=== PATIENT | male | born 1950 | race Two or more races ===

== ENCOUNTER → 2016-04-29 | Outpatient (REF) | payer OTHER, BC | LOC: M SMT 13:08 | PROVIDERS: ATTEND Nurse Practitioner Women's Health | DX: R97.20 Elevated prostate specific antigen [PSA] (principal) ==

== ENCOUNTER → 2016-05-07 | Outpatient (CLI) | payer OTHER, BC ==
--- NOTE | 2016-05-07 12:09 | REP ---
Prostate sonography: History: Elevated PSA. Sonographic findings: Trans rectal prostate sonography demonstrates unremarkable seminal vesicles. Prostate gland is heterogeneously enlarged with calcifications and cystic changes noted. There is a is 0.8 cm nodule on the left side of the prostate. Glandular dimensions are measured at 4.8 x 3.7 x 5.3 cm with a calculated glandular volume of 48.2 ml. Transrectal sonographic guidance provided to Dr. Enamorado who performed trans rectal ultrasound guided needle biopsy procedure . Signed by Shorty Johnson MD 05/07/2016 12:01 P
== END | disposition home or self-care (01) ==
LOC: M SMT PRO 08:24
PROVIDERS: ATTEND Urology
DX: C61 Malignant neoplasm of prostate (principal)
CPT/HCPCS: 55700; 76872; 76942; G0416

== ENCOUNTER → 2016-05-28 | Outpatient (CLI) | payer BC, OTHER ==
--- NOTE | 2016-05-30 07:35 | RADONC ---
RADIATION ONCOLOGY CONSULTATION NOTE DATE: 05/28/2016 CHART NUMBER: [id number]. DIAGNOSIS: Prostate cancer. STAGE: IIA, V2yD2V6. ECOG PERFORMANCE STATUS: 0 CONSULTATION NOTE: Mr. Michelle is a very pleasant 68-year-old white male with the diagnosis of a stage IIA, [id number] moderately to poorly differentiated Lebanon score 7 (4-3) adenocarcinoma of the prostate who is presenting to us today for consideration of definitive external beam radiation therapy with IMRT/IGRT. HISTORY OF PRESENT ILLNESS: The patient was in his usual state of health but was found to have an elevated PSA, which reached a level of 7.29 on 04/16/2016. On 05/07/2016 the patient underwent prostate needle biopsy and pathology revealed a Lebanon score 7 (4-3) adenocarcinoma of the prostate involving the left lateral mid prostate as well as the left lateral apex of the prostate. The patient has done well since biopsy and is now presenting to us to discuss his therapeutic options. PAST MEDICAL HISTORY: The patient's past medical history is positive for atrial fibrillation and hypertension. He had a vasectomy in the past and right rotator cuff surgery. ALLERGIES: The patient has no known drug allergies. SOCIAL HISTORY: The patient does not smoke cigarettes. He drinks alcohol rarely. FAMILY HISTORY: The patient's family history is positive for a father with prostate cancer which was treated 25 years ago with external beam radiation therapy. His mother had thyroid cancer. REVIEW OF SYSTEMS: The patient's review of systems is noncontributory except for some hearing loss. He denies nausea, vomiting, fevers, chills, night sweats, diplopia, headaches, anxiety or depression, anorexia, weight loss, visual disturbances, chest pain, urinary or bowel difficulties, bone pain or neurological problems. PHYSICAL EXAMINATION: The patient is a well-developed, well-nourished male in no acute distress. HEENT exam is normocephalic, atraumatic. Extraocular movements are intact. There is no palpable cervical, supraclavicular, infraclavicular, axillary, or inguinal lymphadenopathy present. Lungs are clear to auscultation and percussion. Heart has a regular rate and rhythm. Abdomen is benign with no hepatosplenomegaly, masses, or tenderness. Rectal examination reveals a normal anal sphincter tone. His prostate is smooth with no evidence of nodularity. Skeletal examination reveals no tenderness to pressure or percussion of the bony skeleton. Extremities reveal no clubbing, cyanosis, or edema. Neurologic exam is grossly intact as is the remainder of the physical examination. MEDICAL NECESSITY: IMRT/IGRT is clinically indicated for the highly conformal dose planning required. The target volume is in close proximity to critical structures, such as the rectum, bladder, small bowel, and femoral heads. The volume of interest must be covered with narrow margins to adequately protect immediately adjacent structures. The plan requires interpretation of complex testing such as CT localization. As noted above, special planning (IMRT) and localizing (IGRT) is required and essential to maximally protect sensitive normal tissue structures which cannot be accomplished using conventional 3-dimensional planning. ASSESSMENT: Clearly Mr. Michelle is a candidate for external beam radiation therapy and I have so informed him. I have discussed with the patient in detail the potential benefits as well as possible acute and chronic sequelae of external beam radiation therapy. We discussed the logistics of treatment planning, simulation and subsequent fractionated daily radiation treatments. We discussed the use of IMRT and IGRT radiation. In this patient due to the high doses required to obtain local control and the proximity of many critical structures such as the bladder, rectum, and small bowel, as well as femoral heads, IMRT will be needed to keep the normal structures within their tolerance limits while delivering a curative dose of radiation to his prostate and seminal vesicles. I discussed in detail the logistics of treatment planning, simulation and subsequent fractionated daily radiation treatments. In addition, I discussed the potential benefits as well as drawbacks of surgical resection for his prostatic adenocarcinoma. We spent more than an hour discussing the benefits and drawbacks of each of his potential therapeutic modalities. I explained to the patient the NCCN guidelines with regard to his treatment options for his present stage and grade of disease. The patient has not yet decided whether or not he wishes to undergo surgery or radiation. I have instructed him to feel free and contact me at anytime once he makes his decision. We will keep his chart active in the meantime. I have also given the patient my cell phone number as well as my work number should any questions arise whatsoever, or if I could be of any further assistance to him in the meantime while he is making decision. Thank you for allowing us to participate in the care of this very pleasant gentleman. If I could be of any further assistance or provide you with any information, please feel free to contact me anytime.
== END ==
LOC: M ONCR 09:12
PROVIDERS: ATTEND Radiology Radiation Oncology
DX: C61 Malignant neoplasm of prostate (principal)

== ENCOUNTER → 2016-06-07 | Outpatient (CLI) | payer BC | LOC: M SMT 10:04 | PROVIDERS: ATTEND Urology | DX: C61 Malignant neoplasm of prostate (principal); Z80.42 Family history of malignant neoplasm of prostate ==

== ENCOUNTER 2016-07-16 06:30 | Inpatient (IN) | payer BC ==
[~2016-07-16] VITALS: Ht 175.3 cm; Wt 88.5 kg
[2016-07-16] VITALS (8 sets, daily range): BP systolic 121–155; BP diastolic 59–86
[~2016-07-16 06:30] MED LIST: ASCO25TA PO; DILT240C75 PO; HYDR25TAB PO; MAGN200T PO; OMEG12002 PO; PROP300T PO; PROSTAB PO; VITACAP8 PO; XARE10TA PO
[2016-07-16] MEDS ORDERED: LR 1,000 ML IV SCH ×2 (06:45→13:15)
[2016-07-16] MEDS ORDERED: LIDOCAINE 1% SDV 5 ML VIAL SQ ONE (07:45)
[2016-07-16] MEDS ORDERED: CO Q200C PO (07:53)
[2016-07-16] MEDS ORDERED: MULTCAP11 PO (07:53)
[2016-07-16] MEDS ORDERED: METHYLENE BLUE 0.5% (5MG/ML) 10 ML AMP (PROVAYBLUE)(Q9968 PER 1MG) As Ordered ONE (07:57)
[2016-07-16] MEDS ORDERED: SCOPOLAMINE 1.5 MG TRANSDERMAL As Ordered ONE (07:58)
[2016-07-16] MEDS ORDERED: SCOPOLAMINE 1.5 MG TRANSDERMAL TD ONE (07:59)
[2016-07-16] MEDS ORDERED: LIDOCAINE 2% INJ 100 MG/5 ML SDV (FOR ANES.) As Ordered ONE (09:08)
[2016-07-16] MEDS ORDERED: NEOSTIGMINE 1MG/ML 5 ML SYRINGE (J2710) As Ordered ONE (09:08)
[2016-07-16] MEDS ORDERED: HYDROmorphone HCL 2 MG/ML 1ML VIAL (J1170) As Ordered ONE (09:08)
[2016-07-16] MEDS ORDERED: dexameTHASONE 4 MG/ML 1ML VIAL (J1100) As Ordered ONE (09:08)
[2016-07-16] MEDS ORDERED: MIDAZOLAM INJ 2 MG/2 ML VIAL (J2250) As Ordered ONE (09:08)
[2016-07-16] MEDS ORDERED: ONDANSETRON 4MG/2ML VIAL (J2405) As Ordered ONE ×2 (09:08→13:13)
[2016-07-16] MEDS ORDERED: GLYCOPYRROLATE INJ 0.2 MG/ML 2 ML VIAL As Ordered ONE (09:08)
[2016-07-16] MEDS ORDERED: ROCURONIUM BROMIDE 50 MG/5 ML VIAL As Ordered ONE ×2 (09:08→10:43)
[2016-07-16] MEDS ORDERED: fentaNYL 250 MCG/5 ML INJECTION (J3010) As Ordered ONE (09:08)
[2016-07-16] MEDS ORDERED: PROPOFOL 200 MG/20 ML VIAL As Ordered ONE (09:08)
[2016-07-16] MEDS ORDERED: fentaNYL 100 MCG/2 ML INJECTION (J3010) As Ordered ONE (13:12)
[2016-07-16] MEDS ORDERED: PERCOCET 5MG/325MG TAB PO PRN (13:15)
[2016-07-16] MEDS: fentaNYL 100 MCG/2 ML INJECTION (J3010) IV PRN ×4 (13:15→13:30)
[2016-07-16] MEDS ORDERED: ONDANSETRON 4MG/2ML VIAL (J2405) IV PRN ×2 (13:15→13:30)
[2016-07-16] MEDS ORDERED: oxyCODONE 5MG TAB PO PRN (13:30)
[2016-07-16] MEDS ORDERED: ACETAMINOPHEN 650MG ER TAB (TYLENOL ARTHRITIS) PO SCH (13:30)
[2016-07-16 13:40] LABS: MEAN CORPUSCULAR HEMOGLOBIN 32.9 pg (27.0-33.0); MEAN CORPUSCULAR HGB CONC 34.8 g/dl (32.0-36.5); MEAN CORPUSCULAR VOLUME 94.7 fl (80.0-96.0); RED CELL DISTRIBUTION WIDTH 12.7 % (11.5-14.5); WHITE BLOOD COUNT 12.1 K/mm3 (4.0-10.0)
[2016-07-16 13:52] LABS: CALCIUM LEVEL 8.5 MG/DL (8.8-10.2); CREATININE FOR GFR 1.37 MG/DL (0.70-1.30); GLOMERULAR FILTRATION RATE 55.7 (>49); POTASSIUM SERUM 4.3 MEQ/L (3.5-5.1)
[2016-07-16] MEDS: KCL 20MEQ IN D5/0.45NS 1000ML 1,000 ML IV SCH ×2 (13:55→21:21)
[2016-07-16] MEDS ORDERED: KETOROLAC 30 MG/ML VIAL (J1885) IV PRN (14:00)
[2016-07-16] MEDS: ACETAMINOPHEN 650MG ER TAB (TYLENOL ARTHRITIS) PO SCH ×2 (16:07→21:20)
[2016-07-16] MEDS: PANTOPRAZOLE 40MG INJ (PROTONIX) (C9113) IV SCH (16:08)
[2016-07-16] MEDS: LevoFLOXacin IV 500 MG in APPROPRIATE DILUENT 1 EA IV SCH (16:09)
[2016-07-16] MEDS: PROPAFENONE 150 MG TAB PO SCH (21:20)
[2016-07-17] VITALS: BP 129/58
[2016-07-17 04:00] VITALS: BP 136/73
[2016-07-17] MEDS: ACETAMINOPHEN 650MG ER TAB (TYLENOL ARTHRITIS) PO SCH ×2 (05:41→13:58)
[2016-07-17 07:26] LABS: MEAN CORPUSCULAR HEMOGLOBIN 33.5 pg (27.0-33.0); MEAN CORPUSCULAR HGB CONC 34.5 g/dl (32.0-36.5); MEAN CORPUSCULAR VOLUME 97.1 fl (80.0-96.0); RED CELL DISTRIBUTION WIDTH 12.9 % (11.5-14.5); WHITE BLOOD COUNT 14.2 K/mm3 (4.0-10.0)
[2016-07-17 07:48] LABS: ANION GAP 8 MEQ/L (8-16); BLOOD UREA NITROGEN 17 MG/DL (7-18); CALCIUM LEVEL 8.7 MG/DL (8.8-10.2); CARBON DIOXIDE LEVEL 28 MEQ/L (21-32); CHLORIDE LEVEL 105 MEQ/L (98-107); GLOMERULAR FILTRATION RATE > 60.0 (>49); GLUCOSE, FASTING 142 MG/DL (80-110); POTASSIUM SERUM 4.1 MEQ/L (3.5-5.1); SODIUM LEVEL 141 MEQ/L (136-145)
[2016-07-17 08:00] VITALS: BP 156/77
[2016-07-17] MEDS: PROPAFENONE 150 MG TAB PO SCH (08:58)
[2016-07-17 08:59] VITALS: BP 156/77
[2016-07-17] MEDS ORDERED: hydroCHLOROthiazide 25 MG TAB PO SCH (09:00)
[2016-07-17] MEDS: KCL 20MEQ IN D5/0.45NS 1000ML 1,000 ML IV SCH (11:22)
[2016-07-17 12:00] VITALS: BP 130/81
--- NOTE | 2016-07-17 12:36 | RO ---
DATE OF SURGERY: 07/16/2016 PREOPERATIVE DIAGNOSIS: Prostate cancer. POSTOPERATIVE DIAGNOSIS: Prostate cancer. SURGERY PERFORMED: Robotic-assisted radical prostatectomy plus bilateral pelvic lymph node dissections. SURGEON: Heath Frazier MD OIL DELIVERER: GRAEME Castillo ESTIMATED BLOOD LOSS: 100 mL. ANESTHESIA: General. COMPLICATIONS: None. HISTORY OF PRESENT ILLNESS: This is a 65-year-old male patient with a history of prostate cancer, localized, he has consented for a robotic-assisted radical prostatectomy plus bilateral pelvic lymph node dissections. PROCEDURE DESCRIPTION: In a patient under general anesthesia in supine modified low lithotomy position, after prepping and draping the area of concern, which included the entire genitalia and abdomen, we started by introducing a #16-[place] Moncada catheter with 10 mL balloon to drain the bladder. An orogastric tube was also placed to drain the gastric contents. We then proceeded to do an incision infraumbilically for about 2 cm in the midline. Through this incision, we opened the aponeurosis fascia of the rectus muscle in the midline with finger dissection. We dissected the Retzius space. We then introduced a balloon space maker and dilated further on to the Retzius space. We then proceeded to place a 12 mm balloon trocar and inflated the balloon to 40 mL; and through this trocar, we insufflated the CO2 into the extraperitoneal space. We then proceeded to place a camera handheld, degrees robotic camera to assist in placing the other ports, two ports on the right side and two ports on the left side. 8 mm ports were placed on the right two by each other by 8 cm and two on the left by each other by 8 cm. On the left side, there was an server service assistant port in a midclavicular line. We then proceeded to place the patient in a steep Trendelenburg position and dock the robot. We proceeded to actually start by defatting the prostatic fat and identifying the anatomy of the prostate. We then opened the endopelvic fascia from base to apex on both sides and then proceeded to actually secure the dorsal vein complex with a dorsal vein stitch with a CT1 needle 0 Vicryl times two and also a 3-0 V-Loc times two suture ligating the dorsal vein complex. We preserved the puboprostatic ligaments. We then proceeded to open the anterior bladder neck and land in the bladder and then deflated the balloon; and with the third arm, we put into traction the prostate by pulling the Moncada catheter to traction anteriorly. We then cut the posterior bladder neck and the posterior detrusor muscle; and then in the vas deferens, we dissected both vas deferens and then cut them; and with the third arm, we pulled the vas deferens anteriorly to put into traction the posterior Denonvilliers fascia. We dissected the right seminal vesicle and left seminal vesicle, fulgurating with bipolar PK, deferential arteries. We then proceeded to incise the posterior Denonvilliers fascia and dissect the rectum away from the prostate gland from base to apex. We then proceeded to actually place Hem-o-loks on the left side and the right side, extra-large, to control the pedicles of the prostate and then mobilized the prostate gland from base to apex. We then proceeded to cut the dorsal vein complex with monopolar scissors and cut the urethra. We then placed the prostate and seminal vesicle into a 10 mm Endo Catch bag. We then proceeded to reconstruct the posterior Denonvilliers fascia with a 3-0 V-Loc in a running fashion. We then proceeded to do a ureterovesical anastomosis with a van Velthoven technique, starting at 6 o'clock outside-in in the bladder and inside-out in the urethra running it across 360 degrees and tying one knot. Before closing the bladder, we actually passed a #20-[place] Moncada catheter and inflated the balloon to 10 mL and placed it to gravity. We then proceeded to start our lymph node dissections. Our limits of dissection were the external iliac artery laterally, posteriorly the posterior lateral wall, medially the bladder, superiorly the bifurcation of the hypogastric arteries, and inferiorly the lacunar ligament. The obturator lymph nodes and hypogastric lymph nodes, as well as the iliac vein lymph nodes were extracted and placed into a 10 mm Endo Catch bag. We then proceeded to secure lymphostasis with Hem-o-loks and bipolar PK. We proceeded to do the same technique on the contralateral side. One we performed this, we placed FloSeal on the area of resection and then took out the third arm and placed a César-Ellington (CARLITO) 15-[place] round drain into the pelvis. We took out the third arm and the instruments out and then undocked the robot. We extracted the specimens after taking the trocars out. The specimens were extracted from the midline incision one by one, left pelvic lymph node dissection, right pelvic lymph node dissection, prostate, and seminal vesicle. We then closed the incision of the midline with UR6 in a 2-0 Vicryl running fashion. All incisions were closed with subcuticular stitches 4-0 Monocryl. Mastisol, Steri-Strips, Telfa, and Tegaderm were placed on each incision site. The CARLITO was placed into a bulb suction and secured to the skin with a 3-0 nylon. PLAN: The patient will pass through recovery and then to the floor. Once he is tolerating a regular diet and pain is controlled with by mouth pain medication, he will be discharged home.
[2016-07-17] MEDS: LevoFLOXacin IV 500 MG in APPROPRIATE DILUENT 1 EA IV SCH (13:58)
[2016-07-17] MEDS: PANTOPRAZOLE 40MG INJ (PROTONIX) (C9113) IV SCH (15:19)
[2016-07-17 16:00] VITALS: BP 133/69
[2016-07-17] MEDS ORDERED: TYLE650T35 PO (16:56)
[2016-07-17] MEDS ORDERED: LEVA500T PO (16:56)
[2016-07-17] MEDS ORDERED: OXYC-517 PO (16:56)
--- NOTE | 2016-07-18 05:47 | DSES ---
DATE OF ADMISSION: 07/16/2016 DATE OF DISCHARGE: 07/17/2016 ADMISSION DIAGNOSIS: Prostate cancer. DISCHARGE DIAGNOSES: Prostate cancer. SURGERY PERFORMED: Robotic assisted radical prostatectomy plus bilateral pelvic lymph node dissections. ADMISSION SURGEON: Heath Frazier MD DISCHARGE SURGEON: Heath Frazier MD HISTORY OF PRESENT ILLNESS: This is a 65-year-old male patient who has a clinical stage This is a 64-year-old male patient with a history of prostate cancer. The patient has a clinical stage cT1c NX MX prostate cancer, Homero VII, 4+3, and 2 positive biopsies out of 12. The patient has consented for robotic assisted radical prostatectomy plus bilateral pelvic lymph node resection. He was admitted for this procedure on 07/16/2016. After this he was admitted to the hospital. HOSPITALIZATION COURSE: The patient did very well. By postoperative day #1, he was tolerating a regular diet and ambulating very well. The pain was tolerated with by mouth pain medication. He was passing gas and the Moncada catheter was draining to gravity clear urine. The César-Ellington (J-P) output was very minimal and had only put out 60 mL and 20 mL per shift. His urine output was 1200 and 5125. The patient would like to go home and for this reason we have discontinued the J-P drain and will send him home with a Moncada catheter to gravity and the following indications. No heavy weight lifting above 20 pounds, no driving under narcotics and no driving for ten days. He may shower, no sitz bath, no heavy weight lifting above 20 pounds. He has to take Levaquin 500 mg one tablet by mouth per day for 10 days, Tylenol 650 mg extended release every eight hours as needed for pain and oxycodone 5 mg every six hours as needed for severe pain. The patient has agreed to this and will followup in 10 days for a voiding trial.
== END 2016-07-17 18:50 | disposition home or self-care (01) | DRG 480 ==
LOC: M OR 06:30 → M PED 14:09
PROVIDERS: ADMIT Urology; ATTEND Urology
PROC: 07TC4ZZ Resection of Pelvis Lymphatic, Percutaneous Endoscopic Approach (ICD-10-PCS; 2016-07-16)
PROC: 8E0W4CZ Robotic Assisted Procedure of Trunk Region, Percutaneous Endoscopic Approach (ICD-10-PCS; 2016-07-16)
PROC: 0VT04ZZ Resection of Prostate, Percutaneous Endoscopic Approach (ICD-10-PCS; principal; 2016-07-16 08:10)
DX: C61 Malignant neoplasm of prostate (principal); I12.9 Hypertensive chronic kidney disease with stage 1 through stage 4 chronic kidney disease, or unspecified chronic kidney disease; N18.2 Chronic kidney disease, stage 2 (mild)

== ENCOUNTER → 2016-07-29 | Outpatient (CLI) | payer BC ==
[~2016-07-29] MED LIST changes: +CO Q200C PO; +LEVA500T PO; +MULTCAP11 PO; +OXYC-517 PO; +TYLE650T35 PO
--- NOTE | 2016-07-30 04:53 | REP ---
Clinical: Testicular pain and swelling. Technique: Dougherty scale and color Doppler evaluation using linear and curved array transducer with color Doppler evaluation. Findings: Scrotal wall thickening is appreciated and nonspecific. Within the left zara scrotum and seemingly separate from the testicle and epididymis is an echogenic, heterogeneous, vascular structure which cannot definitively be further characterized by current examination. Differential diagnosis includes inguinal hernia, possibly inflamed spermatic cord or less likely mass lesion. Consider contrast enhanced CT of the pelvis with extension through the scrotum if necessary. The testicles and epididymi are relatively normal in contour, size, echogenicity, vascularity and overall appearance/contour. Incidental note is made of small epididymal head cysts measuring 4.5 mm on the right and 6 mm on the left. There is no evidence for intratesticular mass lesion, infectious/inflammatory process, or torsion. No obvious hydroceles or varicoceles are identified. Right testicle measures 4.9 x 2.4 x 3.2 cm. Left testicle measures 4.6 x 2.3 x 3.5 cm. Impression: 1. Complex heterogeneous echogenic structure extending into the left zara scrotum which appears avascular and cannot be further characterized by current examination. Differential diagnosis would include but is not limited to inguinal hernia, inflamed spermatic cord, and less likely mass. Consider contrast enhanced CT of the pelvis with extension through the scrotum if necessary. 2. Normal appearance of the bilateral testicles and relatively normal appearance the bilateral epididymi without hydrocele or varicocele. Signed by Jaime Garner MD 07/30/2016 04:45 A
== END ==
LOC: M SMT 11:50
PROVIDERS: ATTEND Specialist
DX: N50.89 Other specified disorders of the male genital organs (principal)

== ENCOUNTER → 2016-08-30 | Outpatient (CLI) | payer BC ==
[~2016-08-30] MED LIST changes: -CO Q200C PO; +CO Q200C10 PO; +ISOVUE-370 76% 100ML VIAL (Q9967) As Ordered ONE; +LEVA1TAB2 PO; -LEVA500T PO
--- NOTE | 2016-08-30 19:04 | REP ---
Clinical: Possible mass by scrotal ultrasound. Technique: Axial contrast enhanced images of the pelvis using 100 ml Isovue 370 intravenous contrast material with coronal and sagittal re-formations. Findings: The the patient is noted to be status post prostatectomy. There is a curvilinear fluid collection along the left anteroinferior pelvic sidewall which measures 2.6 cm in diameter and approximately 8 cm in length reaching the level of the inguinal canal. This may represent a lymphocele or seroma possibly related to patient's prostatectomy and may intermittently herniate into the left inguinal canal thus correlating with the abnormal mass-like structure on prior ultrasound. Small fat containing inguinal hernias are noted (right greater than left). Small likely nonspecific inguinal lymph nodes are also identified. The bladder is unremarkable. No obvious prostate or peroneal mass is appreciated. No free pelvic fluid or ascites. Visualized portions of the small and large bowel demonstrate colonic and sigmoid diverticula without acute diverticulitis and normal terminal ileum/appendix in the right lower quadrant. Vascular structures are symmetric and normal. Osseous structures without focal osseous abnormality. Impression: Abnormal mass-like structure in the left inguinal canal on prior ultrasound likely corresponds to the above-mentioned contained fluid collection along the left pelvic sidewall which may intermittently herniate into the left inguinal canal. Small fat containing inguinal hernias noted (right greater than left). No other significant abnormalities are appreciated. Signed by Jaime Garner MD 08/30/2016 06:56 P
== END ==
LOC: M RAD 17:41
PROVIDERS: ATTEND Nurse Practitioner Women's Health
DX: N50.89 Other specified disorders of the male genital organs (principal); K40.90 Unilateral inguinal hernia, without obstruction or gangrene, not specified as recurrent
CPT/HCPCS: 72193; Q9967

== ENCOUNTER → 2017-11-07 | Outpatient (CLI) | payer BC, OTHER | LOC: M LRY 11:21 | DX: R50.9 Fever, unspecified (principal); R05 Cough | CPT/HCPCS: 71046 ==

== ENCOUNTER 2018-10-29 10:21 | Observation (INO) | payer MEDICARE, OTHER ==
[~2018-10-29] VITALS: Ht 175.3 cm; Wt 85.1 kg
[~2018-10-29 10:21] MED LIST changes: -ASCO25TA PO; -DILT240C75 PO; +DILT240C82 PO; -ISOVUE-370 76% 100ML VIAL (Q9967) As Ordered ONE; +VITA1TAB23 PO
[2018-10-29 11:08] LABS: BASO % 0.6 % (0.0-1.0); EOS # 0.1 10^3/uL (0.0-0.5); EOS % 2.7 % (0.0-3.0); HEMOGLOBIN 14.9 g/dl (13.5-17.5); LYMPH # 1.1 10^3/uL (1.5-5.0); LYMPH % 20.5 % (24.0-44.0); MEAN CORPUSCULAR HEMOGLOBIN 33.2 pg (27.0-33.0); MEAN CORPUSCULAR HGB CONC 35.5 g/dl (32.0-36.5); MEAN CORPUSCULAR VOLUME 93.5 fl (80.0-96.0); MONO # 0.5 10^3/uL (0.0-0.8); MONO % 8.7 % (0.0-5.0); NEUTROPHILS # 3.5 10^3/uL (1.5-8.5); NEUTROPHILS % 66.5 % (36.0-66.0); PLATELET COUNT, AUTOMATED 183 10^3/uL (150-450); RED BLOOD COUNT 4.49 10^6/uL (4.30-6.10); WHITE BLOOD COUNT 5.3 10^3/uL (4.0-10.0)
--- NOTE | 2018-10-29 11:28 | REP ---
Clinical: Transient ischemic attack. Comparison: None . Findings: Age-related atrophy and microvascular ischemic changes are appreciated including very subtle low density areas within the bilateral basal ganglia which are of uncertain chronicity. The ventricles and sulci are symmetric. Dougherty-white differentiation is maintained. There is no evidence for acute intracranial hemorrhage, mass/mass effect, pathology or infarction. No extra-axial fluid collection. Calvarium is intact. Paranasal sinuses and mastoid air cells are clear. Impression: 1. Age related atrophy and microvascular ischemic changes. 2. No acute intracranial hemorrhage, obvious infarction, or mass/mass effect. 3. Very subtle low density areas within the bilateral basal ganglia (right greater than left) may represent chronic change and less likely area of infarction. Electronically Signed by Jaime Garner MD 10/29/2018 11:20 A
[2018-10-29 11:38] LABS: ALT/SGPT 38 U/L (12-78); BILIRUBIN,DIRECT 0.2 MG/DL (0.0-0.2); BILIRUBIN,TOTAL 0.8 MG/DL (0.2-1.0); BLOOD UREA NITROGEN 15 MG/DL (7-18); CALCIUM LEVEL 9.2 MG/DL (8.8-10.2); CARBON DIOXIDE LEVEL 30 MEQ/L (21-32); CHLORIDE LEVEL 106 MEQ/L (98-107); CK-MB VALUE MASS 1.4 NG/ML (<3.6); CPK CREATINE PHOSPHOKINASE 49 U/L (39-308); CREATININE FOR GFR 0.96 MG/DL (0.70-1.30); GLOMERULAR FILTRATION RATE > 60.0 (>49); GLUCOSE, FASTING 120 MG/DL (70-100); MB/CK RELATIVE INDEX 2.86 (< OR =4); POTASSIUM SERUM 3.8 MEQ/L (3.5-5.1); SODIUM LEVEL 143 MEQ/L (136-145); TOTAL PROTEIN 6.7 GM/DL (6.4-8.2); TROPONIN I < 0.02 NG/ML (< 0.10)
[2018-10-29] MEDS ORDERED: ASPI81TA85 PO (11:57)
[2018-10-29] MEDS ORDERED: PANT40TA3 PO (11:57)
[2018-10-29] MEDS ORDERED: XARE20TA PO (11:57)
[2018-10-29] MEDS ORDERED: CHOL100029 PO (11:57)
[2018-10-29] MEDS ORDERED: VITMTA PO (13:44)
--- NOTE | 2018-10-29 13:49 | REP ---
MR angiography the brain without contrast: History: Trans and global amnesia. Versus CVA. Technique: 3-D [id number] MR angiography of the brain is acquired in the usual fashion and maximal intensity projection images were generated in rotational format about the vertical and horizontal axes. In addition, source axial T1-weighted images are viewed in cine mode. MR angiographic findings: The distal vertebral arteries are patent and co-dominant. Basilar artery is a little tortuous but widely patent. The posterior cerebral and superior cerebellar vessels are normal and symmetric. The distal internal carotid arteries are unremarkable. Anterior and middle cerebral arteries appear intact. There is no visible shen aneurysm or arteriovenous malformation. Impression: Unremarkable MR angiography the brain. Electronically Signed by Shorty Johnson MD 10/29/2018 01:41 P
--- NOTE | 2018-10-29 13:51 | REP ---
MRI brain without contrast: History: Trans and global amnesia versus CA. . Comparison study: Comparison CT study is from earlier this date. Technique: Axial and sagittal imaging planes are utilized for T1 and T2-weighted scans. Sequences include spin-echo, fast spin echo, FLAIR, and diffusion weighted sequences. MRI findings: No bony calvarial lesion is seen. Craniocervical junction and upper cervical cord are normal in appearance. There is no MR evidence of significant paranasal sinus disease. No intraorbital abnormality is seen. The lateral, third, and fourth ventricles are normal in size and position. Dougherty-white differentiation pattern is intact above and below the tentorium. There is no evidence of intracranial hemorrhage. No mass, infarction, extra-axial fluid collection or midline shift is seen. No abnormal white matter lesion is seen. Impression: Negative noncontrast brain MRI study. Electronically Signed by Shorty Johnson MD 10/29/2018 01:42 P
[2018-10-29] MEDS ORDERED: ACETAMINOPHEN TAB 650MG DOSE (2X325MG) PO PRN (17:15)
[2018-10-29 17:30] VITALS: BP 193/92
[2018-10-29 17:31] VITALS: BP 185/82
--- NOTE | 2018-10-29 18:41 | HPEPDOC ---
General Date of Admission Oct 29, 2018 at 15:48 Date of Service: Oct 29, 2018 Chief Complaint The patient is a 68-year-old male admitted with a reason for visit of Transient Global Amnesia. Source: Patient, Family Exam Limitations: Hard of hearing Timing/Duration: This morning Severity: Mild Associated Symptoms: Other (lightheadedness) History of Present Illness This is a 68-year-old male who was noted by his to be confused this morning. He had no recollection of whether he taken medications or not. He describes himself as "having a senior moment." He kept repeating questions. He was unable to recall what he was supposed to do that day. He did notice something was wrong and requested to come to the hospital, which is unusual for him per his . Of interest, she knows that he had similar symptoms when he had a concussion years ago. He has not had any fall or head injury. Home Medications Scheduled Aspirin (Aspir 81) 81 Mg Tablet.dr, 81 MG PO QHS, (Reported) Magnesium (Magnesium) 200 Mg Tab, 400 MG PO DAILY, (Reported) Multivitamins (Thera M Plus Tablet) 1 Each Tablet, 1 TAB PO DAILY, (Reported) [place]uc[place]-3 Fatty Acids/Fish Oil ([place]ucumber 3 Fish Oil Softgel) 1 Cap Cap, 1 CAP PO DAILY, (Reported) Pantoprazole Sodium (Pantoprazole Sodium) 40 Mg Tablet.dr, 40 MG PO DAILY, (Reported) Propafenone HCl (Propafenone HCl) 300 Mg Tab, 300 MG PO DAILY, (Reported) RX WRITTEN FOR BID, PT ONLY TAKES DAILY Rivaroxaban (Xarelto) 20 Mg Tablet, 20 MG PO Q2D, (Reported) Ubidecarenone (Co Q-10) 200 Mg Cap, 200 MG PO DAILY, (Reported) Vitamin D (Vitamin D3) 1,000 Unit Tablet, 2,000 UNITS PO DAILY, (Reported) Allergies Coded Allergies: No Known Allergies (Unverified , 10/29/18) Past Medical History Medical History Past medical history is remarkable for hypertension, atrial fibrillation for which he is on chronic anticoagulation, prostate cancer for which he's undergone treatment, hearing loss Surgical History Surgical history includes rotator cuff repair, the aforementioned prostate cancer, repair of fourth digit amputation Family History Significant Family History: Heart disease There are family members with congestive heart failure and skin cancers. There are also family members with renal disease and a sister with Graves' disease. 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 He does not have an advanced directive but has designated his as his power of deputy attorney general. A-FIB/CHADSVASC A-FIB History Current/History of A-Fib/PAF?: Yes Current PO Anticoag Therapy: Yes Review of Systems Other systems 10 system review is otherwise negative except as stated in the brief presentation Physical Examination General Exam: Positive: Alert Eye Exam: Positive: PERRLA, Conjunctiva & lids normal ENT Exam: Positive: Atraumatic, Mucous membr. moist/pink, Tongue Midline, Nares Patent Neck Exam: Positive: Supple Chest Exam: Positive: Clear to auscultation Heart Exam: Positive: Rate Normal Telemetry: Positive: No significant arrhythmia Abdomen Exam: Positive: Normal bowel sounds, Soft; Negative: Tenderness, Hepatospenomegaly Extremity Exam: Positive: Normal pulses, Other (the patient does have deformity to the tip of his right fourth digit) Skin Exam: Positive: Nl turgor and temperature Neuro Exam: Positive: Normal Speech, Strength at 5/5 X4 ext, Normal Tone, Cranial Nerves 3-12 NL, Other (the patient scores 30 points on a Mini-Mental Status exam at this time.) Psych Exam: Positive: Mental status NL, Mood NL, Oriented x 3 Vital Signs Vital Signs Date Time Temp Pulse Resp B/P (MAP) Pulse Ox O2 Delivery O2 Flow Rate FiO2 10/29/18 17:31 185/82 (116) 10/29/18 17:30 98.9 73 18 98 10/29/18 17:15 Room Air Laboratory Data Labs 24H Laboratory Tests 2 10/29/18 10:50: Immature Granulocyte % (Auto) 1.0, White Blood Count 5.3, Red Blood Count 4.49, Hemoglobin 14.9, Hematocrit 42.0, Mean Corpuscular Volume 93.5, Mean Corpuscular Hemoglobin 33.2H, Mean Corpuscular Hemoglobin Concent 35.5, Red Cell Distribution Width 12.6, Platelet Count 183, Neutrophils (%) (Auto) 66.5H, Lymphocytes (%) (Auto) 20.5L, Monocytes (%) (Auto) 8.7H, Eosinophils (%) (Auto) 2.7, Basophils (%) (Auto) 0.6, Neutrophils # (Auto) 3.5, Lymphocytes # (Auto) 1.1L, Monocytes # (Auto) 0.5, Eosinophils # (Auto) 0.1, Basophils # (Auto) 0.0, Nucleated Red Blood Cells % (auto) 0.0, Anion Gap 7L, Glomerular Filtration Rate > 60.0, Calcium Level 9.2, Aspartate Amino Transf (AST/SGOT) 18, Alanine Aminotransferase (ALT/SGPT) 38, Alkaline Phosphatase 66, Total Bilirubin 0.8, Direct Bilirubin 0.2, Total Creatine Kinase 49, Creatine Kinase MB 1.4, Creatine Kinase MB Relative Index 2.86, Troponin I < 0.02, Total Protein 6.7, Albumin 4.0, Albumin/Globulin Ratio 1.48, Thyroid Stimulating Hormone (TSH) 1.590 10/29/18 11:06: Bedside Glucose (Misc Panel) 115 CBC/BMP Laboratory Tests 10/29/18 10:50 Red Blood Count 4.49, Mean Corpuscular Volume 93.5, Mean Corpuscular Hemoglobin 33.2 H, Mean Corpuscular Hemoglobin Concent 35.5, Red Cell Distribution Width 12.6, Neutrophils (%) (Auto) 66.5 H, Lymphocytes (%) (Auto) 20.5 L, Monocytes (%) (Auto) 8.7 H, Eosinophils (%) (Auto) 2.7, Basophils (%) (Auto) 0.6, Neutrophils # (Auto) 3.5, Lymphocytes # (Auto) 1.1 L, Monocytes # (Auto) 0.5, Eosinophils # (Auto) 0.1, Basophils # (Auto) 0.0 Assessment/Plan 1. Short-term memory loss. Patient and are concerned that this is due to a stroke. We have explained to them the phenomenon of Transient global amnesia. It could be associated with a transient ischemic attack. MRI is negative for any findings of infarct, bleed or other abnormality. Plans are to monitor the patient overnight on telemetry. Case has been discussed with the neurology service who will see him tomorrow. 2. Chronic atrial fibrillation. The patient's primary rate control medication is propafenone. He is supposed to be on chronic anticoagulation with Xarelto but he takes it on a modified schedule that. We will correct it while he is in the hospital. 3. Hypertension. Patient states that his blood pressures are generally controlled with systolics of 136. He is currently showing a range of systolic blood pressures from 178 up to 209. His tells us he took himself off of his Cardizem about 2 months ago as he did not feel he needed it. We will replace this dosage at 240 mg daily and monitor his response. The patient is observation status. We anticipate he will require less than 2 midnights in the hospital. Plan / VTE VTE Prophylaxis Ordered?: Yes (the patient is on Xarelto) Plan Diet: Continue Current Activity: Continue Current Anticipated Discharge: Home JRAON ZHOU MD Oct 29, 2018 18:41
[2018-10-29 20:00] VITALS: BP 170/90
[2018-10-29] MEDS: ASPIRIN 81 MG ENTERIC TAB PO SCH (21:33)
[2018-10-29 23:59] VITALS: BP 175/91
[2018-10-30] VITALS (7 sets, daily range): BP systolic 126–170; BP diastolic 64–88
[2018-10-30 05:53] LABS: HEMATOCRIT 40.3 % (42.0-52.0); MEAN CORPUSCULAR HGB CONC 34.7 g/dl (32.0-36.5); MEAN CORPUSCULAR VOLUME 92.2 fl (80.0-96.0); PLATELET COUNT, AUTOMATED 192 10^3/uL (150-450); RED BLOOD COUNT 4.37 10^6/uL (4.30-6.10); WHITE BLOOD COUNT 6.3 10^3/uL (4.0-10.0)
[2018-10-30 06:11] LABS: BLOOD UREA NITROGEN 19 MG/DL (7-18); CALCIUM LEVEL 9.1 MG/DL (8.8-10.2); CARBON DIOXIDE LEVEL 31 MEQ/L (21-32); CHLORIDE LEVEL 107 MEQ/L (98-107); CREATININE FOR GFR 1.01 MG/DL (0.70-1.30); GLOMERULAR FILTRATION RATE > 60.0 (>49); GLUCOSE, FASTING 108 MG/DL (70-100); SODIUM LEVEL 143 MEQ/L (136-145)
--- NOTE | 2018-10-30 06:59 | ECGEPIP ---
[facility] - ED Test Date: 2018-10-29 Pat Name: MARVIN ORANTES Department: Room: [place] [address] Gender: Male Handy Man: maria m : 1950 Requested By: Abdias Poe Order Number: [id number] Reading MD: Abdias Rodriguez Measurements Intervals [place] Rate: 72 P: 33 AR: 190 QRS: -16 QRSD: 106 T: 17 QT: 386 QTc: 425 Interpretive Statements SINUS RHYTHM NSTTW ABNORMALITIES NO PRIORS FOR COMPARISON Electronically Signed on 10-30-2018 6:59:52 EDT by Abdias Rodriguez
[2018-10-30] MEDS: PANTOPRAZOLE 40MG TAB (PROTONIX) PO SCH (08:58)
[2018-10-30] MEDS: PROPAFENONE 150 MG TAB PO SCH (08:58)
[2018-10-30] MEDS: VITAMIN D 1,000 INTERNATIONAL UNITS TABLET PO SCH (08:59)
[2018-10-30] MEDS: RIVAROXABAN 20 MG TAB (XARELTO) PO SCH (09:06)
[2018-10-30] MEDS: ASPIRIN 81 MG ENTERIC TAB PO SCH (20:58)
[2018-10-31 04:00] VITALS: BP 134/69
[2018-10-31] MEDS: RIVAROXABAN 20 MG TAB (XARELTO) PO SCH (07:52)
[2018-10-31 08:00] VITALS: BP 131/73
--- NOTE | 2018-10-31 08:20 | ECHO ---
DATE OF PROCEDURE: 10/30/2018 AGE: 68 REFERRING PROVIDER: Dr. Chavira LOCATION: Room 8225 REASON FOR STUDY: Transient ischemic attack. 2-D MEASUREMENTS: LVS: 1.2 cm LV 6.2 cm LVPW: 1.1 cm LA: 5.0 cm Aorta: 3.6 cm RV: 3.6 cm DOPPLER MEASUREMENTS: Peak velocity across the aortic valve: 1.3 m/s Peak velocity across the LVOT: 1.2 m/s Mitral E: 1.4, Mitral A: 0.94 with a ratio of 1.5 Maximum tricuspid valve velocity: 2.8 m/s 2D COMMENTS: 1. Normal left ventricular size, wall thickness. Left ventricular systolic function is normal, estimated at 65 to 70%. 2. Mildly to moderately enlarged left atrium. Normal right atrium and right ventricle. 3. The atrial septum appeared to be normal without evidence of defect or shunt. 4. Normal aortic root. 5. No pericardial effusion seen. 6. Normal aortic valve. There was collapse of the posterior mitral valve leaflet. Normal tricuspid valve. The pulmonic valve and proximal pulmonary artery branches are normal. 7. The inferior vena cava is borderline enlarged. Central venous pressure might be elevated. DOPPLER: It detects severe eccentric mildly elevated mild aortic regurgitation, mild tricuspid regurgitation. The calculated pulmonary artery systolic pressure is about normal at 30 mmHg. Trace pulmonic regurgitation also detectded. IMPRESSION: 1. Normal global left ventricular systolic and diastolic function. 2. Severe eccentric mildly elevated mitral regurgitation with collapse of the posterior mitral valve leaflet. 3. Mild tricuspid regurgitation with normal pulmonary artery systolic pressure. 4. There are also features of elevated central venous pressure. The inferior vena cava was mildly enlarged. This patient will benefit from further cardiac workup for mitral valve repair/replacement. MTDD
[2018-10-31] MEDS ORDERED: CARD120C3 PO (08:47)
[2018-10-31] MEDS: PROPAFENONE 150 MG TAB PO SCH (09:08)
[2018-10-31] MEDS: VITAMIN D 1,000 INTERNATIONAL UNITS TABLET PO SCH (09:08)
[2018-10-31 09:09] VITALS: BP 131/73
[2018-10-31] MEDS: PANTOPRAZOLE 40MG TAB (PROTONIX) PO SCH (09:09)
--- NOTE | 2018-10-31 12:47 | CR ---
DATE OF CONSULTATION: 10/30/2018 REFERRING PHYSICIAN: Dr. Chavira REASON FOR CONSULTATION: Acute memory loss. HISTORY OF PRESENT ILLNESS: Guru Michelle is a 68-year-old man who was brought to [facility] by his due to sudden altered mental status. The patient woke up fine and had loaded furniture into his truck to deliver it to his family's home. He woke up fine and by mid morning had no recollection if he had taken his morning medications. He describes to his that he was having a "senior moment." He kept repeating questions. He was unable to recall what he was supposed to do that day. He noted that something was wrong. He requested to come to hospital, which was unusual per his . His symptoms lasted for 5 hours and they improved. He felt back to his baseline. He denies any headache or back issues at that moment. He does have history of chronic back pain. He has intermittent neck pain. He denies any numbness, weakness of his arms and leg, dysphagia, dysarthria, diplopia, urinary incontinence. He remembers that he was asking his repeatedly as to what he was going to do today. He states that 5 years ago he had an episode at work that he could not remember password and other things for a couple of hours, it resolved on its own. He states that he has lost weight and his blood pressure was running low, so he stopped taking his diltiazem. He has been taking his Xarelto every other day as his atrial fibrillation went back to sinus rhythm. He states that his location and measurement technician, Dr. Restrepo, was fine with him making these medication changes. PAST MEDICAL HISTORY: Paroxysmal atrial fibrillation, hypertension, history of prostate cancer, hearing loss. CURRENT MEDICATIONS: - aspirin 81 mg by mouth daily - magnesium 400 mg by mouth daily - multivitamin 1 tablet by mouth daily - fish oil one capsule by mouth daily - Protonix 40 mg by mouth daily - propafenone 300 mg by mouth daily - Xarelto 20 mg by mouth every other days - coenzyme Q10 200 mg by mouth daily - vitamin D3 2000 units by mouth daily He stopped taking diltiazem. ALLERGIES: None. SOCIAL HISTORY: Smokes cigars occasionally. He denies any alcohol or illicit drugs. FAMILY HISTORY: Significant for congestive heart failure and skin cancer. Sister with history of Grave's disease. REVIEW OF SYSTEMS: All systems were reviewed and found to be noncontributory except as mentioned is present illness. PHYSICAL EXAMINATION: Temperature 97.6, pulse 88, aspirin 18, blood pressure 170/80, 97% saturation on room air. Heart: Regular rate and rhythm. Lungs: Clear to auscultation. Abdomen: Soft, nontender, nondistended. Extremities: No pedal edema. No musculoskeletal abnormalities. No rash. No signs of meningeal irritation. The patient is awake, alert, oriented to place, person and time. Normal speech, comprehension and repetition. Extraocular muscles are intact. No facial weakness. Tongue and uvula are midline. 5/5 strength in all upper extremities. Deep tendon flexes 2+ throughout. Normal sensation. Gait is normal. DIAGNOSTIC STUDIES: MRI and MRA of the brain were within normal limits. His CBC and metabolic profile were normal. ASSESSMENT: 1. Suspected transient global amnesia. 2. History of paroxysmal atrial fibrillation but the patient takes his Xarelto every other day and stopped taking his diltiazem. PLAN: 1. EEG and ultrasound of carotids on outpatient basis to complete his workup. 2. He should discuss with his location and measurement technician his decision to stop diltiazem and his decision to change Xarelto to every other day. 3. The patient can be discharged home and follow with our office in 2 - 3 weeks after hospital discharge. CHRIS
--- NOTE | 2018-10-31 16:01 | IPNPDOC ---
Text Note Date of Service The patient was seen on 10/30/18. NOTE Mr. Michelle is feeling well this morning. He does not have headache or any other complaint. He is not note any memory lapses. Patient was admitted with concern for TIA after transient global amnesia event. Physical exam: HENT: neck is supple with no adenopathy or thyromegaly. He does not have scleral injection. Patient wears glasses. Cardiovascular: Regular rate and rhythm with a normal S1 and S2 and no appreciable murmur or bruit. Lungs: Clear to auscultation, good air movement. Abdomen: Soft, nontender, nondistended. Extremities: No peripheral edema or lesions. Neuro: No focal neuromotor or sensory deficits. Assessment/plan: 1. Transient global amnesia. Etiologies could include transient ischemic attack/TIA versus seizure. Echocardiogram is pending. Patient is to be seen by Neurology service. Of interest, patient describes a similar event happening at his workplace about 5 years ago. He states he did not seek care at that time. In consideration that this could be a form of seizure EEG might be reasonable, will defer to neurology service. 2. Hypertension. Patient did present with poorly controlled hypertension. He had taken himself off of his diltiazem about 2 months ago. It has been restored and his blood pressure control is improved. 3. Chronic atrial fibrillation. The patient remains on good rate control with propafenone. He is on anticoagulation with Xarelto although he only takes a dose every 2 days. This is not an approved schedule. VS,Fishbone, I+O VS, Fishbone, I+O Vital Signs Date Time Temp Pulse Resp B/P (MAP) Pulse Ox O2 Delivery O2 Flow Rate FiO2 10/31/18 09:09 59 131/73 10/31/18 08:00 97.8 16 95 10/29/18 17:15 Room Air I&O- Last 24 Hours up to 6 AM 10/31/18 06:00 Intake Total 2040 ml Output Total 1300 ml Balance 740 ml JARON ZHOU MD Oct 31, 2018 16:01
--- NOTE | 2018-10-31 17:50 | DS.PDOC ---
Discharge Summary General Date of Admission Oct 29, 2018 at 15:48 Date of Discharge October 31, 2018 Primary Care Physician: Chantal Klein Specialist/Consultants Involve: VIANEY GUZMAN MD Discharge Summary PROCEDURES PERFORMED DURING STAY: Echocardiogram. ADMITTING DIAGNOSES: 1. Transient global amnesia, uncontrolled hypertension. DISCHARGE DIAGNOSES: 1. Transient global amnesia, uncontrolled hypertension, chronic atrial fibrillation for which he is on chronic anticoagulation. COMPLICATIONS/CHIEF COMPLAINT: Transient Global Amnesia. HISTORY OF PRESENT ILLNESS/HOSPITAL COURSE: This is a 68-year-old male who's noticed by his to be confused on the morning of admission. He had significant memory deficits. He kept repeating questions. He was subsequently brought to the emergency room for evaluation. Of interest, the reports the patient having a similar episode associated with a concussion many years ago. The patient mentions having had an abrupt episode at work within the past 5 years. The patient was admitted to the telemetry floor. He was felt this had an episode of transient global amnesia. He was ruled out for acute stroke by head CT and that there was no acute lesion. He did not have any other neurologic symptoms and his amnesia, resolved. The patient in fact scored 30 out of 30 on a Mini- Mental status exam. The patient was seen by the Neurology service who will see him again on an outpatient basis; performance of an EEG may be considered as these episodes could represent seizure. The patient had remarkable. Uncontrolled hypertension on presentation. The patient told us his systolic pressures are generally in the 130s. However, he remains from the high 170s up to 209 systolically. The patient mentioned that he had one time had been on diltiazem; his tells us he took himself off of it about 2 months ago. He states he took himself off because his blood pressures w ere "fine". He was restored to his diltiazem and his blood pressures improved significantly. It is also a component of his rate control for his underlying atrial fibrillation for which he is on chronic anticoagulation with Xarelto. Patient also manages his anticoagulation differently; he only takes the Xarelto every 2 days, which is not a standard regimen. We have strongly counseled the patient that he needs to take his medications as prescribed. If he wishes to make any changes he needs to consult with his physician. We are very concerned that he will not be compliant.. DISCHARGE MEDICATIONS: Please see below. ALLERGIES: Please see below. PHYSICAL EXAMINATION ON DISCHARGE: VITAL SIGNS: Please see below. HENT: neck is supple with no adenopathy or thyromegaly. He does not have scleral injection. Patient wears glasses. Cardiovascular: Regular rate and rhythm with a normal S1 and S2 and no appreciable murmur or bruit. Lungs: Clear to auscultation, good air movement. Abdomen: Soft, nontender, nondistended. Extremities: No peripheral edema or lesions. Neuro: No focal neuromotor or sensory deficits. Psych: Patient does not exhibit memory deficits. He does appear to have some judgment and insight deficits. LABORATORY DATA: Please see below. IMAGING: ECHOCARDIOGRAM Echocardiogram showed normal global left ventricular systolic and diastolic function with an ejection fraction of 65-70%. Note was made of eccentric mitral regurgitation with collapse of the posterior mitral valve leaflet. The patient may need mitral valve repair/replacement. PROGNOSIS: ACTIVITY: As tolerated. DIET: DASH diet DISCHARGE PLAN: The patient is cleared for discharge to home. He is to follow-up with his primary care provider Chantal Klein in 1-2 weeks in order to review his medication management and for referral to cardiology. He is to also follow-up with the neurology service in 2-3 weeks. It is unfortunately not clear that this patient will be compliant as he has made medication changes without discussing them with anyone. It has been explained to the patient that he is putting himself at risk when he makes changes without consulting anyone. DISPOSITION: 01 Home, Self-Care. DISCHARGE INSTRUCTIONS: ITEMS TO FOLLOWUP ON ON OUTPATIENT: DISCHARGE CONDITION: Stable. TIME SPENT ON DISCHARGE: Greater than 35 minutes. Vital Signs/I&Os Vital Signs Date Time Temp Pulse Resp B/P (MAP) Pulse Ox O2 Delivery O2 Flow Rate FiO2 10/31/18 09:09 59 131/73 10/31/18 08:00 97.8 16 95 10/29/18 17:15 Room Air I&O- Last 24 Hours up to 6 AM 10/31/18 05:59 Intake Total 2040 ml Output Total 1300 ml Balance 740 ml Discharge Medications Scheduled Aspirin (Aspir 81) 81 Mg Tablet.dr, 81 MG PO QHS, (Reported) Diltiazem Hcl (Cardizem Cd) 120 Mg Cap.er.24h, 240 MG PO DAILY Magnesium (Magnesium) 200 Mg Tab, 400 MG PO DAILY, (Reported) Multivitamins (Thera M Plus Tablet) 1 Each Tablet, 1 TAB PO DAILY, (Reported) [place]-3 Fatty Acids/Fish Oil ([place] 3 Fish Oil Softgel) 1 Cap Cap, 1 CAP PO DAILY, (Reported) Pantoprazole Sodium (Pantoprazole Sodium) 40 Mg Tablet.dr, 40 MG PO DAILY, (Reported) Propafenone HCl (Propafenone HCl) 300 Mg Tab, 300 MG PO DAILY, (Reported) RX WRITTEN FOR BID, PT ONLY TAKES DAILY Rivaroxaban (Xarelto) 20 Mg Tablet, 20 MG PO Q2D, (Reported) Ubidecarenone (Co Q-10) 200 Mg Cap, 200 MG PO DAILY, (Reported) Vitamin D (Vitamin D3) 1,000 Unit Tablet, 2,000 UNITS PO DAILY, (Reported) Allergies Coded Allergies: No Known Allergies (Unverified , 10/29/18) JARON ZHOU MD Oct 31, 2018 17:50
== END 2018-10-31 10:20 | disposition home or self-care (01) ==
LOC: M ED 10:21 → M ED INP 15:48 → M PCU 16:28
PROVIDERS: ADMIT Internal Medicine; ATTEND Internal Medicine
DX: G45.4 Transient global amnesia (principal); I10 Essential (primary) hypertension; I48.2 Chronic atrial fibrillation; I34.0 Nonrheumatic mitral (valve) insufficiency; R42 Dizziness and giddiness; H91.90 Unspecified hearing loss, unspecified ear; Z79.899 Other long term (current) drug therapy; Z79.01 Long term (current) use of anticoagulants; Z79.82 Long term (current) use of aspirin; Z91.14 Patient's other noncompliance with medication regimen; Z85.46 Personal history of malignant neoplasm of prostate; Z72.0 Tobacco use
CPT/HCPCS: 36415; 70450; 70544; 70551; 80048; 80076; 82550; 82553; 84443; 84484; 85025; 85027; 93005; 93041; 93306; 94760; 99285; G0378

== ENCOUNTER → 2020-03-31 | Outpatient (CLI) | payer MEDICARE ==
[~2020-03-31] MED LIST changes: +ACET650T61 PO; +ASCO250T20 PO; +ASPI81TA86 PO; +CARD120C3 PO; +CHOL100029 PO; +HYDR-3490 PO; -HYDR25TAB PO; +PANT40TA29 PO; -TYLE650T35 PO; -VITA1TAB23 PO; +VITMTA PO; +XARE20TA PO
--- NOTE | 2020-04-01 04:42 | REP ---
INDICATION: TESTICULAR LUMP COMPARISON: 07/29/2016 TECHNIQUE: Dougherty scale and color Doppler evaluation using linear and curved array transducer with color Doppler evaluation. FINDINGS: The testicles are relatively normal in contour, size, echogenicity, and vascularity. There is no evidence for intratesticular mass lesion, infectious/inflammatory process, or torsion. Bilateral epididymal cysts measure 7 mm and 5 mm on the right and 8 mm on the left. Early right-sided varicoceles measure up to 3.5 mm diameter. Patient's palpable mass corresponds to mildly prominent but otherwise relatively normal appearing left epididymal tail. Right testicle measures 4.6 x 2.2 x 3.3 cm. Left testicle measures 4.0 x 2.1 x 3.8 cm. IMPRESSION: 1. Normal appearance of the bilateral testicles. No hydroceles. 2. Minimal early right-sided varicoceles up to 3.5 mm. 3. Benign epididymal cysts similar to prior examination. 4. Patient's palpable mass corresponds to mildly prominent but otherwise normal appearing left epididymal tail. <Electronically signed by Jaime Garner > 04/01/20 0439
== END ==
LOC: M RAD 15:30
PROVIDERS: ATTEND Nurse Practitioner Women's Health
DX: N50.89 Other specified disorders of the male genital organs (principal); N50.3 Cyst of epididymis; I86.1 Scrotal varices

== ENCOUNTER → 2022-04-03 | Outpatient (REF) | payer MEDICARE ==
[2022-04-03 18:48] LABS: APPEARANCE, URINE MANUAL CLEAR (CLEAR); BILIRUBIN, URINE MANUAL NEGATIVE (NEGATIVE); BLOOD URINE MANUAL NEGATIVE (NEGATIVE); COLOR, URINE MANUAL YELLOW (YELLOW); GLUCOSE, URINE (UA) MANUAL NEGATIVE (NEGATIVE); KETONE, URINE MANUAL NEGATIVE (NEGATIVE); LEUKOCYTE ESTERASE, URINE MAN NEGATIVE (NEGATIVE); NITRITE, URINE MANUAL NEGATIVE (NEGATIVE); PROTEIN, URINE MANUAL NEGATIVE (NEGATIVE); SPECIFIC GRAVITY,URINE MANUAL 1.025 (1.002-1.035); UROBILINOGEN, URINE MANUAL NORMAL (NORMAL)
== END ==
LOC: M SMT 17:19
PROVIDERS: ATTEND Nurse Practitioner Women's Health
DX: N50.819 Testicular pain, unspecified (principal)

== ENCOUNTER → 2023-02-26 | Outpatient (CLI) | payer OTHER | LOC: M RAD 14:56 | PROVIDERS: ATTEND Urology | DX: N50.3 Cyst of epididymis (principal); I86.1 Scrotal varices; N50.89 Other specified disorders of the male genital organs ==

== ENCOUNTER → 2023-02-26 | Outpatient (CLI) | payer OTHER ==
[2023-02-26 15:09] LABS: APPEARANCE, URINE CLEAR (CLEAR); BACTERIA, URINE AUTO NEGATIVE (NEGATIVE); BILIRUBIN, URINE AUTO NEGATIVE (NEGATIVE); BLOOD, URINE BLOOD NEGATIVE (NEGATIVE); COLOR, URINE YELLOW (YELLOW); GLUCOSE, URINE (UA) AUTO NEGATIVE (NEGATIVE); KETONE, URINE AUTO NEGATIVE (NEGATIVE); LEUKOCYTE ESTERASE, URINE AUTO NEGATIVE (NEGATIVE); NITRITE, URINE AUTO NEGATIVE (NEGATIVE); PROTEIN, URINE AUTO NEGATIVE (NEGATIVE); RBC, URINE AUTO 0 /HPF (0-3); SPECIFIC GRAVITY URINE AUTO 1.014 (1.002-1.035); SQUAMOUS EPITHELIAL CELL UR AU 0 /HPF (0-6); UROBILINOGEN, URINE AUTO 0.2 mg/dL (0.0-2.0); WBC, URINE AUTO 0 /HPF (0-3)
== END ==
LOC: M LAB 14:08
PROVIDERS: ATTEND Urology
DX: N50.89 Other specified disorders of the male genital organs (principal)

== ENCOUNTER → 2024-09-16 | Outpatient (CLI) | payer MEDICARE ==
[~2024-09-16] MED LIST changes: +ISOVUE-370 76% 100 ML VIAL As Ordered ONE; -PROP300T PO; +[UNRECOGNIZED DRUG - CODE] PO
== END ==
LOC: M RAD 09:46
PROVIDERS: ATTEND Urology
DX: N28.1 Cyst of kidney, acquired (principal)
CPT/HCPCS: 74170; 82565; Q9967